=== PATIENT | female | born 1935 ===

== ENCOUNTER → 2018-08-24 13:24 | Outpatient (REF) | payer MEDICARE, OTHER, SELFPAY ==
[2018-08-24 14:18] LABS: Body Fluid Red Blood Cells 1778 /uL; Body Fluid Tot Nucleated Cells 691 /uL
[2018-08-24 14:22] LABS: Body Fluid Red Blood Cells 1727 /uL; Body Fluid Tot Nucleated Cells 162 /uL
[2018-08-24 16:22] LABS: Body Fluid Color YELLOW
[2018-08-24 16:23] LABS: Body Fluid Appearance CLOUDY; Body Fluid Clotted? NO CLOTS PRESENT
[2018-08-24 16:24] LABS: Mononuclear WBC Body Fluid 76 %; Polynuclear WBC Body Fluid 24 %
[2018-08-24 16:28] LABS: Erythrocyte Sedimentation Rate 1 MM/HR (0-20)
[2018-08-24 16:31] LABS: Body Fluid Appearance CLOUDY; Body Fluid Clotted? NO CLOTS PRESENT; Body Fluid Color YELLOW
[2018-08-24 16:32] LABS: Mononuclear WBC Body Fluid 88 %; Polynuclear WBC Body Fluid 12 %
== END ==
LOC: LAB 13:24
PROVIDERS: Visit Provider Internal Medicine Rheumatology
DX: M25.462 Effusion, left knee (principal); M25.461 Effusion, right knee; M06.09 Rheumatoid arthritis without rheumatoid factor, multiple sites; Z79.899 Other long term (current) drug therapy
CPT/HCPCS: 85651; 87070; 87075; 87205; 89051; 89060